=== PATIENT | female | born 1940 | race Caucasian/White ===

== ENCOUNTER 2018-10-22 17:26 | Emergency (ER) | payer OTHER ==
[2018-10-22] MEDS ORDERED: ASPIRIN 81 MG CHEWABLE TAB PO ONE (17:48)
[2018-10-22] MEDS ORDERED: NS 500 ML IV ONE (17:48)
--- NOTE | 2018-10-22 17:52 | EDPHY ---
H & P Stated Complaint: cp last few hours substernl back to chest Time Seen by Provider: 10/22/18 17:42 HPI/ROS: CHIEF COMPLAINT: Chest pain HISTORY OF PRESENT ILLNESS: The patient is a 78-year-old female with a history of ankylosing spondylitis, Karl syndrome, esophageal strictures as well as previous PE's currently on Coumadin. She was watching TV 2 hr ago when she developed sudden retrosternal chest pain that she describes as mild and diffuse. It does hurt more with lifting her arms above her head. No shortness of breath. No nausea vomiting. No diaphoresis. No lightheadedness. Some radiation to her back. No to her arms or jaw. She denies any history of cardiac or pulmonary disease. She states that this feels different than her esophageal strictures and food impactions. She was not eating at the time. She thinks that it is musculoskeletal. Severity: Moderate Modifying factors: Worsened by movement or lifting arms above head REVIEW OF SYSTEMS: Constitutional: denies: chills, fever, recent illness, recent injury EENTM: denies: blurred vision, double vision, nose congestion Respiratory: denies: cough, shortness of breath Cardiac: See HPI d Gastrointestinal/Abdominal: denies: abdominal pain, diarrhea, nausea, vomiting, blood streaked stools Genitourinary: denies: dysuria, frequency, hematuria, pain Musculoskeletal: denies: joint pain, muscle pain Skin: denies: lesions, rash, jaundice, bruising Neurological: denies: headache, numbness, paresthesia, tingling, dizziness, weakness Hematologic/Lymphatic: denies: blood clots, easy bleeding, easy bruising Immunologic/allergic: denies: HIV/AIDS, transplant 10 systems reviewed and negative except as noted EXAM: GENERAL: Well-appearing, well-nourished and in no acute distress. HEAD: Atraumatic, normocephalic. EYES: Pupils equal round and reactive to light, extraocular movements intact, sclera anicteric, conjunctiva are normal. ENT: TMs normal, nares patent, oropharynx clear without exudates. Moist mucous membranes. NECK: Normal range of motion, supple without lymphadenopathy or JVD. LUNGS: Breath sounds clear to auscultation bilaterally and equal. No wheezes rales or rhonchi. HEART: Regular rate and rhythm without murmurs, rubs or gallops. ABDOMEN: Soft, nontender, normoactive bowel sounds. No guarding, no rebound. No masses appreciated. BACK: No CVA tenderness, no spinal tenderness, step-offs or deformities EXTREMITIES: Normal range of motion, no pitting or edema. No clubbing or cyanosis. NEUROLOGICAL: Cranial nerves II through XII grossly intact. Normal speech, normal gait. 5/5 strength, normal movement in all extremities, normal sensation , normal reflexes PSYCH: Normal mood, normal affect. SKIN: Warm, dry, normal turgor, no visible rashes or lesions. Source: Patient Exam Limitations: No limitations - Personal History Current Tetanus Diphtheria and Acellular Pertussis (TDAP): Unsure - Medical/Surgical History Hx Asthma: No Hx Chronic Respiratory Disease: No Hx Diabetes: No Hx Cardiac Disease: No Hx Renal Disease: No Hx Cirrhosis: No Hx Alcoholism: No Hx HIV/AIDS: No Hx Splenectomy or Spleen Trauma: No Other PMH: Espophogeal stricture, ankylosing spondylosis, [place] Syndrome, PE, Kidney Stone - Family History Significant Family History: No pertinent family hx - Social History Smoking Status: Former smoker Alcohol Use: None Drug Use: None Constitutional: Initial Vital Signs Temperature (C) 36.7 C 10/22/18 17:33 Heart Rate 72 10/22/18 17:33 Respiratory Rate 18 10/22/18 17:33 Blood Pressure 170/112 H 10/22/18 17:33 O2 Sat (%) 94 10/22/18 17:33 O2 Delivery Mode Room Air Allergies/Adverse Reactions: cefuroxime Allergy (Verified 10/22/18 17:32) metronidazole [From Flagyl] Allergy (Verified 09/23/15 15:54) Penicillins Allergy (Verified 09/23/15 15:54) Sulfa (Sulfonamide Antibiotics) Allergy (Verified 09/23/15 15:54) Home Medications: Medication Instructions Recorded Folic Acid 09/23/15 Lisinopril 09/23/15 Methotrexate 09/23/15 Warfarin Sodium 09/23/15 Medical Decision Making - Diagnostics EKG Interpretation: An EKG obtained and was read and documented in trace view. Please see trace view for full reading and report. Sinus rhythm, no acute ischemic changes Imaging Results: Imaging Impressions Chest X-Ray 10/22/18 17:49 Impression: Suspect airways disease, with no superimposed acute abnormality identified. Chest/Thorax CTA 10/22/18 19:55 Impression: 1. No evidence of pulmonary embolic disease. 2. See above report for additional findings. Results called and discussed with SAVAGE CARTWRIGHT M.D. on 10/22/2018 at 21:21. Imaging: Discussed imaging studies w/ business dean Radiologist ED Course/Re-evaluation: 8:00 p.m. Patient's D-dimer is elevated. She is on Coumadin. She has had PEs before. Will angio. Her EKG and troponin are reassuring. Will repeat troponin. 9:30 p.m. the patient's 2nd troponin CT are reassuring. She is currently asymptomatic and is eager to go home. She would like some pain medication to help her sleep. She is requesting Dilaudid. Will give her a small dose. She and her are very grateful. They declined further workup or testing at this time. We discussed follow-up as well as indications for returning. Patient now able to raise arms above head without difficulty. Differential Diagnosis: Partial list of the Differential diagnosis considered include but were not limited to; acute coronary disease, musculoskeletal pain, PE and although unlikely based on the history and physical exam, I also considered pneumothorax , pneumonia, neuropathy. I discussed these differential diagnoses and the plan with the patient as well as the usual and expected course. The patient understands that the diagnosis is provisional and that in medicine we are not always correct and that further workup is often warranted. Usual and customary warnings were given. All of the patient's questions were answered. The patient was instructed to return to the emergency department should the symptoms at all worsen or return, otherwise to followup with the physician as we discussed. - Data Points Laboratory Results: Laboratory Results 10/22/18 17:45 10/22/18 17:45 10/22/18 10/22/18 10/22/18 20:12 17:51 17:45 WBC RBC Hgb Hct MCV MCH MCHC RDW Plt Count MPV Neut % (Auto) Lymph % (Auto) [place] % (Auto) Eos % (Auto) Baso % (Auto) Nucleat RBC Rel Count Absolute Neuts (auto) Absolute Lymphs (auto) Absolute Monos (auto) Absolute Eos (auto) Absolute Basos (auto) Absolute Nucleated RBC Immature Gran % Immature Gran # PT INR APTT D-Dimer Sodium 136 mEq/L mEq/L (135-145) Potassium 4.4 mEq/L mEq/L (3.5-5.2) Chloride 106 mEq/L mEq/L (97-110) Carbon Dioxide 21 mEq/l L mEq/l (22-31) Anion Gap 9 mEq/L mEq/L (6-14) BUN 17 mg/dL mg/dL (7-23) Creatinine 0.6 mg/dL mg/dL (0.6-1.0) Estimated GFR > 60 Glucose 89 mg/dL mg/dL (70-100) Calcium 9.5 mg/dL mg/dL (8.5-10.4) Total Bilirubin 0.5 mg/dL mg/dL (0.1-1.4) Conjugated Bilirubin 0.4 mg/dL mg/dL (0.0-0.5) Unconjugated Bilirubin 0.1 mg/dL mg/dL (0.0-1.1) AST 39 IU/L IU/L (14-46) ALT 44 IU/L IU/L (9-52) Alkaline Phosphatase 81 IU/L IU/L (38-126) POC Troponin I 0.01 ng/mL ng/mL 0.01 ng/mL ng/mL (0.00-0.08) (0.00-0.08) Total Protein 6.9 g/dL g/dL (6.3-8.2) Albumin 4.3 g/dL g/dL (3.5-5.0) Lipase 92 IU/L IU/L (23-300) 10/22/18 10/22/18 17:45 17:45 WBC 5.05 10^3/uL 10^3/uL (3.80-9.50) RBC 4.52 10^6/uL 10^6/uL (4.18-5.33) Hgb 13.7 g/dL g/dL (12.6-16.3) Hct 41.3 % % (38.0-47.0) MCV 91.4 fL fL (81.5-99.8) MCH 30.3 pg pg (27.9-34.1) MCHC 33.2 g/dL g/dL (32.4-36.7) RDW 14.9 % % (11.5-15.2) Plt Count 253 10^3/uL 10^3/uL (150-400) MPV 9.8 fL fL (8.7-11.7) Neut % (Auto) 55.8 % % (39.3-74.2) Lymph % (Auto) 28.1 % % (15.0-45.0) [place] % (Auto) 12.5 % % (4.5-13.0) Eos % (Auto) 2.4 % % (0.6-7.6) Baso % (Auto) 0.8 % % (0.3-1.7) Nucleat RBC Rel Count 0.0 % % (0.0-0.2) Absolute Neuts (auto) 2.82 10^3/uL 10^3/uL (1.70-6.50) Absolute Lymphs (auto) 1.42 10^3/uL 10^3/uL (1.00-3.00) Absolute Monos (auto) 0.63 10^3/uL 10^3/uL (0.30-0.80) Absolute Eos (auto) 0.12 10^3/uL 10^3/uL (0.03-0.40) Absolute Basos (auto) 0.04 10^3/uL 10^3/uL (0.02-0.10) Absolute Nucleated RBC 0.00 10^3/uL 10^3/uL (0-0.01) Immature Gran % 0.4 % % (0.0-1.1) Immature Gran # 0.02 10^3/uL 10^3/uL (0.00-0.10) PT 25.6 SEC H SEC (12.0-15.0) INR 2.34 H (0.83-1.16) APTT 41.5 SEC H SEC (23.0-38.0) D-Dimer 2.13 ug/mLFEU H ug/mLFEU (0.00-0.50) Sodium Potassium Chloride Carbon Dioxide Anion Gap BUN Creatinine Estimated GFR Glucose Calcium Total Bilirubin Conjugated Bilirubin Unconjugated Bilirubin AST ALT Alkaline Phosphatase POC Troponin I Total Protein Albumin Lipase Medications Given: Discontinued Medications Aspirin (Aspirin) 324 mg PO EDNOW ONE Stop: 10/22/18 17:49 Last Admin: 10/22/18 17:52 Dose: 324 mg Hydromorphone HCl (Dilaudid) 0.5 mg IVP EDNOW ONE Stop: 10/22/18 21:29 Last Admin: 10/22/18 21:37 Dose: 0.5 mg Sodium Chloride (Ns) 500 mls @ 0 mls/hr IV EDNOW ONE; Wide Open PRN Reason: Protocol Stop: 10/22/18 17:49 Last Admin: 10/22/18 17:52 Dose: 500 mls Point of Care Test Results: Chemistry 10/22/18 10/22/18 20:12 17:51 POC Troponin I 0.01 ng/mL ng/mL 0.01 ng/mL ng/mL (0.00-0.08) (0.00-0.08) Departure - Departure Disposition: Home, Routine, Self-Care Clinical Impression: Chest pain Qualifiers: Chest pain type: unspecified Qualified Code(s): R07.9 - Chest pain, unspecified Condition: Fair Instructions: Hydromorphone (By mouth), Chest Pain (ED) Referrals: NONE *PRIMARY CARE P,. [Primary Care Provider] - As per Instructions [facility] ,. [Edm Groups for Call Sched] - 2-3 days, call for appt.
--- NOTE | 2018-10-22 17:55 | CPEKG ---
Test Reason : OPEN Blood Pressure : / mmHG Vent. Rate : 068 BPM Atrial Rate : 067 BPM P-R Int : 214 ms QRS Dur : 087 ms QT Int : 422 ms P-R-T Axes : 050 024 017 degrees QTc Int : 449 ms Sinus rhythm Borderline prolonged MD interval Confirmed by Diego Mayers ([id number]) on 10/22/2018 5:55:19 PM Referred By: Diego Mayers Confirmed By:Diego Mayers
[2018-10-22 18:35] LABS: PLATELET COUNT 253 10^3/uL (150-400)
[2018-10-22 19:05] LABS: INR 2.34 (0.83-1.16); PROTIME(PATIENT) 25.6 SEC (12.0-15.0)
[2018-10-22] MEDS ORDERED: IOPAMIDOL (ISOVUE 370) 100 ML BTL IV ONE (20:09)
[2018-10-22] MEDS ORDERED: HYDROmorphONE/DILAUDID 2 MG/ML INJ IVP ONE (21:28)
[2018-10-22 21:48] VITALS: BP 168/96
== END 2018-10-22 21:50 | disposition home or self-care (01) ==
DX: R07.9 Chest pain, unspecified (principal); E86.9 Volume depletion, unspecified; Z86.711 Personal history of pulmonary embolism; Z79.01 Long term (current) use of anticoagulants
CPT/HCPCS: 71046; 71275; 93005; 96361; 96374; 99285; J1170; Q9967; 84484-ER